=== PATIENT | male | born 1975 | race Caucasian/White ===

== ENCOUNTER 2019-05-15 10:18 | Emergency (ER) | payer MEDICAID, OTHER ==
[~2019-05-15] VITALS: Ht 180.3 cm; Wt 89.4 kg
[2019-05-15 10:29] VITALS: BP 129/87; PULSE 94; RESP 18; Ht 180.3 cm; Wt 89.4 kg
[2019-05-15] MEDS ORDERED: HYDR-4011 PO (11:11)
[2019-05-15] MEDS ORDERED: NAPR-985 PO (11:11)
--- NOTE | 2019-05-15 13:22 | ERD ---
ER Documentation Chief Complaint Chief Complaint C/O LEFT KNEE PAIN S/P KNEE GAVE OUT AND FALL, LANDED ON KNEE; USING CRUTCH HPI 44-year-old male presenting with left knee pain. Patient states that he was walking in his knee gave out on him. He slipped and fell on his knee. He took ibuprofen with no alleviation. Specific going on for about a week. He had x- rays done 3 days ago which were normal the patient is presenting for an MRI today. Patient denies other medical problems. NKDA. Surgical history denies. Social history smokes half a pack a day. ROS All systems reviewed and are negative except as per history of present illness. Medications Home Meds Active Scripts Naproxen* (Naprosyn*) 500 Mg Tablet, 500 MG PO BID PRN for PAIN AND/OR INFLAMMATION, #30 TAB Prov:FLAVIO HERNANDEZ PA-C 05/15/19 Hydrocodone/Acetaminophen ([place] 5-325 Tablet) 1 Each Tablet, 1 TAB PO Q6H PRN for PAIN, #7 TAB Prov:FLAVIO HERNANDEZ PA-C 05/15/19 Allergies Allergies: Coded Allergies: No Known Allergy (Unverified , 03/28/15) PMhx/Soc History of Surgery: No Anesthesia Reaction: No Hx Neurological Disorder: No Hx Respiratory Disorders: No Hx Cardiac Disorders: No Hx Psychiatric Problems: No Hx Miscellaneous Medical Probl: No Hx Alcohol Use: No Hx Substance Use: No Hx Tobacco Use: No Smoking Status: Never smoker FmHx Family History: No diabetes, No coronary disease, No other Physical Exam Vitals Vital Signs Date Temp Pulse Resp B/P (MAP) Pulse Ox O2 O2 Flow FiO2 Time Delivery Rate 05/15/19 98.6 94 18 129/87 97 10:29 (101) Physical Exam GENERAL: The patient is well-appearing, well-nourished, in no acute distress CHEST: Clear to auscultation bilaterally. There are no rales, wheezes or rhonchi. HEART: Regular rate and rhythm. No murmurs, clicks, rubs or gallops. No S3 or S4. EXTREMITIES: Equal pulses bilaterally. There is no peripheral clubbing, cyanosis or edema. No focal swelling or erythema. Full range of motion. Grossly neurovascularly intact. NEUROLOGIC: Alert and oriented. Cranial nerves II through XII intact. Motor strength in all 4 extremities with 5 out of 5 strength. Sensation grossly intact. SKIN: There is no apparent rash or petechiae. The skin is warm and dry. Procedures/MDM MDM: 44-year-old male presenting with knee pain. Patient declines after x-rays and there is no indication for an emergent MRI at today's visit. Patient is re commended to follow-up with primary doctor to obtain referral for MRI. Patient may have a tendon or ligament versus meniscus injury however patient has normal range of motion so I have low suspicion for complete immobilization of the knee at this time. Patient is discharged with strict ER precautions and told to follow-up with primary care within 1 to 2 days for close evaluation. Patient is discharged with strict ER precautions and told to follow-up with primary care within 1 to 2 days for close evaluation. All questions answered at discharge Departure Diagnosis: Primary Impression: Knee injury Condition: Stable Patient Instructions: Knee Pain, Uncertain Cause Referrals: SHAZIA SUTTON MD [facility] Hours: Sun-Sun 9:00 AM - 5:00 PM Additional Instructions: FOLLOW UP WITH YOUR PRIMARY CARE PHYSICIAN TOMORROW.Return to this facility if you are not improving as expected. FLAVIO HERNANDEZ PA-C May 15, 2019 13:22
== END 2019-05-15 11:32 | disposition home or self-care (01) ==
LOC: E/R 10:18 → FTE 11:32
DX: S89.92XA Unspecified injury of left lower leg, initial encounter (principal); W01.0XXA Fall on same level from slipping, tripping and stumbling without subsequent striking against object, initial encounter; Y92.9 Unspecified place or not applicable; Z87.891 Personal history of nicotine dependence
CPT/HCPCS: 29505; Z7502